=== PATIENT | female | born 1970 | race African-American/Black ===

== ENCOUNTER 2025-04-16 20:39 | Emergency (ER) | payer BC ==
[2025-04-16 21:50] LABS: #Basophils 0.04 10x3/uL (0.0-0.2); #Eosinophils 0.34 10x3/uL (0.0-0.7); #Monocytes 0.62 10x3/uL (0.11-0.59); #Neutrophils 2.85 10x3/uL (1.40-6.50); %Basophils 0.5 % (0.0-1.0); %Eosinophils 4.7 % (0.0-10.0); %Lymphocytes 47.1 % (21.0-51.0); %Monocytes 8.5 % (0.0-10.0); %Neutrophils 39.1 % (42.0-75.0); Hematocrit 45.9 % (36.0-47.0); Hemoglobin 15.0 g/dL (12.0-16.0); Mean Corpuscular Hemoglobin 26.7 pg (27.0-31.0); Mean Corpuscular Volume 81.8 fL (78.0-98.0); Platelet Count 282 10x3/uL (130-400); Red Blood Cell (RBC) Count 5.61 mill/uL (4.20-5.40); White Blood Cell (WBC) Count 7.30 10x3/uL (4.8-10.8)
[2025-04-16 22:08] LABS: ALT (SGPT) 10 U/L (Less than 34); AST (SGOT) 22 U/L (11-34); Albumin 3.9 g/dL (3.1-4.5); Alkaline Phosphatase 88 U/L (40-110); Anion Gap 14 mmol/L (10-20); BUN (Urea Nitrogen) 10 mg/dL (9.8-20.1); Bilirubin, Total 0.2 mg/dL (0.3-1.2); Calc. Creatinine Clearance 0 mL/min (70-130); Calcium 8.9 mg/dL (7.8-10.44); Carbon Dioxide 24 mmol/L (22-29); Chloride 103 mmol/L (98-107); Globulin 3.9 g/dL (2.4-3.5); Glucose 304 mg/dL (70-105); Lipase 38 U/L (8-78); Potassium 4.0 mmol/L (3.5-5.1); Sodium 137 mmol/L (136-145)
[2025-04-16] MEDS ORDERED: Methocarbamol 500 MG TAB ONE (23:18)
[2025-04-16] MEDS ORDERED: Acetaminophen 500 MG TAB ONE (23:18)
[2025-04-16] MEDS ORDERED: diphenhydrAMINE 50 MG/ML VIAL ONE (23:19)
[2025-04-16] MEDS ORDERED: Metoclopramide HCl 10 MG (2 mL) VIAL ONE (23:19)
[2025-04-16] MEDS ORDERED: Methocarbamol 500 MG TAB PO SCH (23:30)
== END 2025-04-17 00:24 | disposition home or self-care (01) ==
LOC: ERS 20:39
DX: S33.5XXA Sprain of ligaments of lumbar spine, initial encounter (principal); I10 Essential (primary) hypertension; R51.9 Headache, unspecified; X50.3XXA Overexertion from repetitive movements, initial encounter
CPT/HCPCS: 70450; 71045; 72131; 80053; 83690; 84484; 85025; 93005; 96374; 96375; J1200; J2765